=== PATIENT | male | born 1975 | race Hispanic/Latino ===

== ENCOUNTER 2017-03-13 13:31 | Emergency (ER) | payer OTHER ==
[2017-03-13 13:58] VITALS: BP 190/104; PULSE 80; RESP 16; TEMP 99; O2SAT 100
[2017-03-13] MEDS ORDERED: Sodium Chloride 0.9% 1,000 ML IV STA ×2 (14:25→16:01)
--- NOTE | 2017-03-13 14:33 | ED PDOC ---
Lower Extremity Pain/Injury Time Seen by Provider: 03/13/17 14:17 Chief Complaint (Nursing): Lower Extremity Problem/Injury Chief Complaint (Provider): Right foot pain History Per: Patient History/Exam Limitations: no limitations Onset/Duration Of Symptoms: Days Current Symptoms Are (Timing): Still Present Severity: Moderate Additional History Per: Patient Additional Complaint(s): The patient is a 41yo male, no known past medical history, presents to the ED for evaluation of right 2nd toe swelling for the past 2 days. Patient states he visited Dr. Osiel Springer today who informed him to come to the ED for evaluation. Patient denies any trauma or injury to the toe. He offers no other medical complaints. Against Medical Advice - AMA Patient Left Against Medical Advice: The patient declines admission to the hospital and wishes to leave the Emergency Department. This action is against my medical advice. This decision was made with informed refusal. The patient was told that admission to the hospital is necessary. Explanation of the reasons why were discussed. The risks of leaving were explained to the patient and include, but are not limited to, worsening of known or currently unknown conditions, permanent disability and from undiagnosed or untreated conditions. The patient has the capacity to make this informed decision and understands my explanation of the current medical problem and risks of leaving. The patient voluntarily accepts these risks and signed an AMA form documenting our conversation. The patient was given the opportunity to ask questions and reconsider. The patient was encouraged to return to the Emergency Department at any time for further care. Past Medical History Reviewed: Historical Data, Nursing Documentation, Vital Signs Vital Signs: Last Vital Signs Temp 99.0 F 03/13/17 13:52 Pulse 80 03/13/17 13:52 Resp 16 03/13/17 13:52 BP 190/104 H 03/13/17 13:52 Pulse Ox 100 03/13/17 13:52 - Medical History PMH: No Chronic Diseases Denies: Diabetes - Surgical History Surgical History: No Surg Hx - Family History Family History: States: No Known Family Hx - Home Medications Home Medications: Ambulatory Orders Medication Instructions Recorded Amoxicillin/Clavulanate [Augmentin 1 tab PO BID #20 tab 03/13/17 875 MG-125 MG] Hydrochlorothiazide [Microzide] 12.5 mg PO DAILY #15 cap 03/13/17 metFORMIN [glucOPHAGE] 500 mg PO BID #30 tab 03/13/17 - Allergies Allergies/Adverse Reactions: Allergies Allergy/AdvReac Type Severity Reaction Status Date / Time apple Allergy ANAPHYLAXIS Verified 03/13/17 13:52 Review of Systems Constitutional: Negative for: Fever, Chills Musculoskeletal: Positive for: Foot Pain (right 2nd digit swelling) Physical Exam - Reviewed Nursing Documentation Reviewed: Yes Vital Signs Reviewed: Yes - Physical Exam Appears: Positive for: Non-toxic, No Acute Distress Head Exam: Positive for: NORMOCEPHALIC Skin: Positive for: Warm, Dry Neck: Positive for: Supple Respiratory: Negative for: Respiratory Distress Pulses-Dorsalis Pedis (R): 2+ Extremity: Positive for: Normal ROM, Capillary Refill (unabe to assess), Swelling (erythema, edema to right 2nd toe. ulcer noted on distal tip of right 2nd toe. purulent discharge noted to right 2nd toe) Neurologic/Psych: Positive for: Alert, Oriented - Laboratory Results Result Diagrams: 03/13/17 14:53 03/13/17 14:53 - ECG O2 Sat by Pulse Oximetry: 100 (RA) Pulse Ox Interpretation: Normal Medical Decision Making Medical Decision Making: Time: 1415 Impression: Right foot pain Plan: -- XR Right foot -- Labs -- IV Fluids Reassess Pt seen by podiaty. Pt to be admitted for osteomyolitis. Pt states he does not want to stay in hospital. Scribe Attestation: Documented by Josiane Epstein acting as a scribe for ALEJANDRA Bautista Provider Attestation: All medical record entries made by the Scribe were at my direction and personally dictated by me. I have reviewed the chart and agree that the record accurately reflects my personal performance of the history, physical exam, medical decision making, and the department course for this patient. I have also personally directed, reviewed, and agree with the discharge instructions and disposition. Disposition - Clinical Impression Clinical Impression: Osteomyelitis, Diabetes mellitus, Hypertension - Patient ED Disposition Is Patient to be Admitted: No Counseled Patient/Family Regarding: Diagnosis, Need For Followup, Rx Given - Disposition Referrals: [facility] [Outside] Disposition: Against Medical Advice Disposition Time: 19:05 Condition: GOOD Prescriptions: Amoxicillin/Clavulanate [Augmentin 875 MG-125 MG] 1 tab PO BID #20 tab Hydrochlorothiazide [Microzide] 12.5 mg PO DAILY #15 cap metFORMIN [glucOPHAGE] 500 mg PO BID #30 tab Instructions: Osteomyelitis (ED) Forms: M87 (Hebrew)
[2017-03-13 14:59] LABS: BASO % 0.4 % (0.0-2.0); EOS # 0.1 K/uL (0.0-0.7); HEMATOCRIT 44.3 % (35.0-51.0); LYMPH # 1.1 K/uL (1.0-4.3); LYMPH % 11.3 % (20.0-40.0); MEAN CELL VOLUME 94.1 fl (80.0-94.0); MEAN CORPUSCULAR HEMOGLOBIN 32.1 pg (27.0-31.0); MEAN CORPUSCULAR HGB CONC 34.1 g/dL (33.0-37.0); MEAN PLATELET VOLUME 7.1 fl (7.2-11.7); MONO # 0.9 K/uL (0.0-0.8); MONO % 9.3 % (0.0-10.0); NEUT # 7.8 K/uL (1.8-7.0); RED CELL DISTRIBUTION WIDTH 12.6 % (11.5-14.5)
[2017-03-13 15:23] LABS: ALB/GLOB RATIO 1.1 (1.0-2.1); ALKALINE PHOSPHATASE 55 U/L (38-126); ALT/SGPT 34 U/L (21-72); AST/SGOT 32 U/L (17-59); BILIRUBIN,TOTAL 0.8 mg/dl (0.2-1.3); BLOOD UREA NITROGEN 11 mg/dl (9-20); CALCIUM 9.8 mg/dL (8.4-10.2); CARBON DIOXIDE 23 mmol/L (22-30); CHLORIDE 103 mmol/L (98-107); GFR AFRICAN-AMERICAN > 60; GLUCOSE,RANDOM 271 mg/dL (75-110); POTASSIUM 4.1 MMOL/L (3.6-5.0); SODIUM 142 mmol/l (132-148); TOTAL PROTEIN 8.7 G/DL (6.3-8.2)
[2017-03-13] MEDS ORDERED: Silver Sulfadiazine 1% CREAM (50 gm) TOP STA (16:01)
[2017-03-13] MEDS ORDERED: Piperacillin/Tazobact 3.375 GM in Sodium Chloride 0.9% 100 ML IV ONE (16:04)
--- NOTE | 2017-03-13 16:25 | RAD ---
PROCEDURE: Right foot dated 03/13/2017 Three views of the right foot performed no prior HISTORY: Infection 2nd digit COMPARISON: No prior FINDINGS: BONES: The current study reveals destructive changes -osteomyelitis of the distal phalanx 2nd toe. There are calcific like densities seen on either side of the DIP joint which could represent some periosteal of reaction. Early infection of the distal aspect of the middle phalanx cannot be completely excluded. There is surrounding soft tissue swelling. No gas seen within the soft tissues. The remaining osseous structures intact without additional focal destructive changes. No evidence of acute displaced fracture nor dislocation. Impression: Destructive changes distal phalanx 2nd toe of with marked soft tissue swelling. Findings consistent with osteomyelitis.
[2017-03-13] MEDS ORDERED: Vancomycin 1 g Inj ONE (16:36)
[2017-03-13] MEDS ORDERED: Piperacillin/Tazobact 3.375 gm Inj IVPB ONE (16:36)
--- NOTE | 2017-03-13 16:40 | CP.PCM.CON ---
History of Present Illness - History of Present Illness History of Present Illness: 41 y/o male with no PMHx seen at bedside in ED for right foot 2nd digit infection. Patient states that his toe became swollen and red about a week ago but started draining pus yesterday. Patient states that he had a mild pain in on his right foot for which he took advil at home. Patient states that it looked even worst today so he went and saw a cigarette filter inspector who instructed him to come to the ED. Patient denies of any recent F/N/V/C/SOB/CP today. Patient states that this incident occured few months back but the swelling went away on its own and did not have any drainage. Patient denies of any trauma to his foot recently. Patient denies of any other pedal complains at this time. PMHx: Denies PSHx: Denies Allergies: Apples Review of Systems - Constitutional Constitutional: As Per HPI Past Patient History - Past Social History Smoking Status: Never Smoked - PSYCHIATRIC Hx Substance Use: No Meds Allergies/Adverse Reactions: Allergies Allergy/AdvReac Type Severity Reaction Status Date / Time apple Allergy ANAPHYLAXIS Verified 03/13/17 13:52 - Medications Medications: Current Medications Sodium Chloride (Sodium Chloride 0.9%) 1,000 mls @ 1,000 mls/hr IV .Q1H STA Stop: 03/13/17 17:00 Vancomycin HCl 1 gm/ Sodium (Chloride) 250 mls @ 166.667 mls/hr IVPB DAILY LALI Piperacillin Sod/Tazobactam (Sod 3.375 gm/ Sodium Chloride) 100 mls @ 100 mls/ hr IV ONCE ONE Stop: 03/13/17 17:03 Physical Exam - Constitutional Appears: Well, Non-toxic, No Acute Distress - Extremities Exam Additional comments: Bilateral lower extremity exam: VASC: DP/PT pulses are palpable 2/4 b/l, Cap refill time: < 3 sec to all digits , Temp gradient: warm to cool on the left and warm to warm on the right from proximal to distal, non-pitting edema noted on the 2nd digit which is extending to dorsum of the right foot extending to lower leg DERM: Wound measuring 1cm x 1cm x 0.4 cm present on the distal tip of the 2nd digit on the right foot, wound base is fibrogranular with active purulent drainage, periwound maceration with 1st and 2nd digit maceration noted, malodor present from the right foot, Probe to bone on the 2nd digit, periwound erythema extending up to the mid leg on the right LE, undermining and tunneling present at the wound site, suspicion of active infection secondary to the wound NEURO: Protective sensation intact via Ipswitch 4/4 b/l ORTHO: mild tenderness on palpation of the 2nd digit wound on the right foot, no pain on ROM of the 2nd digit at MTPJ - Neurological Exam Neurological exam: Alert, Oriented x3 - Psychiatric Exam Psychiatric exam: Normal Affect, Normal Mood Results - Vital Signs Recent Vital Signs: Last Vital Signs Temp 99.0 F 03/13/17 13:52 Pulse 80 03/13/17 13:52 Resp 16 03/13/17 13:52 BP 190/104 H 03/13/17 13:52 Pulse Ox 100 03/13/17 14:37 - Labs Result Diagrams: 03/13/17 14:53 03/13/17 14:53 Labs: Laboratory Results - last 24 hr 03/13/17 03/13/17 14:53 14:53 WBC 10.0 RBC 4.71 Hgb 15.1 Hct 44.3 MCV 94.1 H MCH 32.1 H MCHC 34.1 RDW 12.6 Plt Count 241 MPV 7.1 L Neut % (Auto) 78.0 H Lymph % (Auto) 11.3 L Sierra % (Auto) 9.3 Eos % (Auto) 1.0 Baso % (Auto) 0.4 Neut # 7.8 H Lymph # 1.1 Sierra # 0.9 H Eos # 0.1 Baso # 0.0 Sodium 142 Potassium 4.1 Chloride 103 Carbon Dioxide 23 Anion Gap 20 BUN 11 Creatinine 0.6 L Est GFR ( Amer) > 60 Est GFR (Non-Af Amer) > 60 Random Glucose 271 H Calcium 9.8 Total Bilirubin 0.8 AST 32 ALT 34 Alkaline Phosphatase 55 Total Protein 8.7 H Albumin 4.5 Globulin 4.2 H Albumin/Globulin Ratio 1.1 Assessment & Plan - Assessment and Plan (Free Text) Assessment: 41 y/o male seen at bedside in ED for infected Oseguera grade 3 wound at the distal tip of the 2nd digit on the right foot Plan: Patient seen and evaluated at bedside in ED Patient discussed in details with attending Dr. Nena Vitals and labs reviewed (Temp: 99F, WBC @ 10.0) X-rays ordered and reviewed: -Increase in radiodensity on 2nd digit of the right foot indicating soft tissue edema, no evidence of soft tissue emphysema noted, periosteal reaction with erosion noted on the distal aspect of the distal phalanx of the 2nd digit on right foot consistent with OM Wound debrided to healthy granular tissue and approx. 2 cc of purulent drainage removed Wound cleaned with saline and dressed using silvadine, betadine, DSD. Patient educated the severity of his infection and educated that he should be admitted to the hospital - Patient denies to stay in the hospital overnight - Patient leaving AMA Patient given IV vanc/zosyn Patient given Augmentin and educated to take the medication as prescribed Patient educated to follow up in podiatry clinic on Saturday morning Patient demonstrated verbal understanding Patient given a surgical shoe Thank you for the podiatry consult - Date & Time Date: 03/13/17 Time: 16:57
== END 2017-03-13 20:27 | disposition home or self-care (01) ==
LOC: H.ER 13:31
DX: E11.621 Type 2 diabetes mellitus with foot ulcer (principal); I10 Essential (primary) hypertension; M86.9 Osteomyelitis, unspecified; Z79.84 Long term (current) use of oral hypoglycemic drugs
CPT/HCPCS: 73630; 80053; 85025; 87040; 87070; 87181; 96361; 96365; 96367; 99283; J2543; J7040